=== PATIENT | female | born 1975 | race Caucasian/White ===

== ENCOUNTER 2025-01-10 19:52 | Emergency (ER) | payer MEDICAID ==
[2025-01-10] MEDS: Acetaminophen/HYDROcodone 325-5 MG Tab PO ONE (22:03)
== END 2025-01-10 22:08 | disposition home or self-care (01) ==
LOC: MW.ED 19:52
DX: S82.62XA Displaced fracture of lateral malleolus of left fibula, initial encounter for closed fracture (principal); Z75.3 Unavailability and inaccessibility of health-care facilities; Z79.899 Other long term (current) drug therapy; X50.1XXA Overexertion from prolonged static or awkward postures, initial encounter; Y93.01 Activity, walking, marching and hiking
CPT/HCPCS: 73610; 99283; A9270; 99284

== ENCOUNTER 2025-04-28 16:57 | Emergency (ER) | payer MEDICAID ==
[2025-04-28] MEDS: Lidocaine 2% Viscous Solution 15 ML UD PO ONE (17:25)
[2025-04-28] MEDS: Dexamethasone Sod Phos Preservative Free 10 MG/ML Vial ONE (17:25)
== END 2025-04-28 18:27 | disposition home or self-care (01) ==
LOC: MW.ED 16:57
DX: J03.90 Acute tonsillitis, unspecified (principal); Z88.1 Allergy status to other antibiotic agents; Z91.0110 Allergy to milk products, unspecified; Z88.8 Allergy status to other drugs, medicaments and biological substances; Z75.3 Unavailability and inaccessibility of health-care facilities; Z90.710 Acquired absence of both cervix and uterus
CPT/HCPCS: 87428; 87651; 99283; J1100; J3490; 99284; A9270-GY